=== PATIENT | male | born 1960 | race Caucasian/White ===

== ENCOUNTER 2024-02-13 06:41 | Day surgery (SDC) | payer OTHER ==
[~2024-02-13] VITALS: Ht 182.9 cm; Wt 90.7 kg
[2024-02-13] MEDS ORDERED: fentaNYL citrate 0.05 MG/ML VIAL ONE (08:49)
[2024-02-13] MEDS: LIDOCAINE 2% 1000 MG/50 ML VIAL INJ ONE (09:00)
== END 2024-02-13 11:00 | disposition home or self-care (01) ==
LOC: MOR 06:41 → MMU 06:42 → MOR 11:00
PROVIDERS: ATTEND Internal Medicine Gastroenterology
DX: K70.9 Alcoholic liver disease, unspecified (principal); E11.9 Type 2 diabetes mellitus without complications; E03.9 Hypothyroidism, unspecified; Z79.899 Other long term (current) drug therapy; Z79.84 Long term (current) use of oral hypoglycemic drugs; Z98.890 Other specified postprocedural states
CPT/HCPCS: 47000; 76942; 82948; 88307; 88313; Q0092; J2001; J3010